=== PATIENT | female | born 1990 | race Two or more races ===

== ENCOUNTER 2019-06-06 19:50 | Outpatient (RCR) | payer OTHER, SELFPAY ==
[2019-06-06] MEDS: RHO(D) IMMUNE GLOBULIN 300 MCG SYRINGE IM (20:17)
== END 2019-09-01 23:59 | disposition home or self-care (01) ==
LOC: ANHLAB 19:50
PROVIDERS: PCP Family Medicine; Visit Provider Student in an Organized Health Care Education/Training Program
DX: Z29.13 Encounter for prophylactic Rho(D) immune globulin (principal); O36.0990 Maternal care for other rhesus isoimmunization, unspecified trimester, not applicable or unspecified; Z3A.00 Weeks of gestation of pregnancy not specified
CPT/HCPCS: 36415; 85461; 90384; 96372; J2790

== ENCOUNTER 2019-07-23 10:25 | Outpatient (RCR) | payer OTHER, SELFPAY ==
[2019-07-21 16:27] VITALS: BP 94/61; PULSE 85
[2019-07-23 10:55] VITALS: BP 104/64; PULSE 91
== END 2019-08-17 13:18 | disposition home or self-care (01) ==
LOC: ANHOBOP 10:25
PROVIDERS: PCP Family Medicine; Visit Provider Student in an Organized Health Care Education/Training Program
DX: O36.5930 Maternal care for other known or suspected poor fetal growth, third trimester, not applicable or unspecified (principal); Z3A.35 35 weeks gestation of pregnancy
CPT/HCPCS: 59025; J3010

== ENCOUNTER 2019-08-16 10:30 | Outpatient (CLI) | payer OTHER, SELFPAY ==
[2019-08-16 11:01] LABS: Hematocrit 29.4 % (37.0-47.0); Mean Corpuscular Hemoglobin 30.7 pg (26-34); Mean Corpuscular Volume 90.2 fl (80-100); Mean Platelet Volume 10.5 fl (7.4-10.4); Platelet Count Result 145 k/mm3 (150-375); Red Blood Count 3.26 M/mm3 (4.2-5.4); Red Cell Distribution Width 13.6 % (11.5-14.5); White Blood Count 10.8 K/mm3 (4.5-10.0)
[2019-08-17 07:25] LABS: Rapid Plasma Reagin Non-Reactive (NonReactive)
== END 2019-08-16 10:31 | disposition home or self-care (01) ==
LOC: ANHLAB 10:32
PROVIDERS: PCP Family Medicine; Visit Provider Student in an Organized Health Care Education/Training Program
DX: Z34.93 Encounter for supervision of normal pregnancy, unspecified, third trimester (principal); Z3A.00 Weeks of gestation of pregnancy not specified
CPT/HCPCS: 36415; 85027; 86592; 86850; 86880; 86900; 86901; 86902

== ENCOUNTER 2019-08-17 05:30 | Inpatient (IN) | payer OTHER, SELFPAY ==
[2019-08-17] VITALS (54 sets, daily range): BP systolic 80–128; BP diastolic 25–88; PULSE 38–122; RESP 16–18; TEMP 36.1–37; O2SAT 98–100; BMI 27.3
--- NOTE | 2019-08-17 06:51 | PM.IMHP ---
H&P: HPI History of Present Illness Chief complaint: Narrative: Chapo Spence is a 29 year old at 39w1d who presents for repeat section. is complicated by history of prior x2. She endorses good FM. She denies regular contractions, vaginal bleeding, or leakage of fluid. Review of Systems Cardiovascular: Cardiovascular: Denies chest pain, Denies leg edema, Denies palpitations, Denies dyspnea and Denies dyspnea on exertion Respiratory: Respiratory: Denies cough, Denies dyspnea and Denies dyspnea on exertion Gastrointestinal: Gastrointestinal: Denies abdominal pain, Denies constipation, Denies diarrhea, Denies nausea and Denies vomiting Genitourinary: Genitourinary: Denies hematuria, Denies urinary frequency, Denies dysuria, Denies pelvic pain, Denies urinary incontinence and Denies vaginal discharge Neurologic: Reports system reviewed and no additional complaints, except as documented Psychiatric: Psychiatric: Reports no additional psychiatric complaints Endocrine: Endocrine: Denies palpitations [facility] Family History Family History (Updated 07/29/19 @ 15:39 by Azra Lamb RN) Mother Diabetes mellitus Hypertension Father Multiple sclerosis Social History Social History Substance use: never Gender identity (if verbalized by the patient): Female Spiritual care concerns: No Meds Home Medications and Allergies Home Medications Medication Instructions Recorded Confirmed Type PNV cmb#95-ferrous fumarate-FA 1 tablet PO DAILY 07/29/19 07/29/19 History [] ergocalciferol (vitamin D2) 1,250 mcg PO WEEKLY 07/29/19 07/29/19 History [Vitamin D2] Allergies Allergy/AdvReac Type Severity Reaction Status Date / Time aspirin AdvReac Unknown Other Verified 07/29/19 17:03 ibuprofen AdvReac Unknown Unknown Verified 07/29/19 17:03 Exam Const: General: no acute distress Eyes: EOM: EOMs intact bilaterally Neck: Neck: supple Thyroid: thyroid normal Chest: Breast/axilla inspection: normal inspection of the breasts Breast/axilla palpation: normal palpation of the breasts, normal palpation of the axillae and no axillary lymphadenopathy Resp: Effort & Inspection: normal respiratory effort Auscultation: clear to auscultation bilaterally Cardio: Rate: regular rate Rhythm: regular rhythm GI: Inspection: non-distended GI Palp: Yes Soft to palpation, No Tenderness to palpation present (GI) and No Guarding due to palpation present (GI) Auscultation: normal bowel sounds Other: Gravid, fundal height equal to dates, non-tender : General: No bladder normal to palpation External Female Exam: normal external appearance Speculum Exam - Vagina: normal vaginal discharge and No vaginal bleeding Speculum Exam - Cervix: nontender Bimanual exam- vagina & uterus: No bladder normal to palpation and No Cervical tenderness present OB/external & speculum: No vaginal bleeding Skin: General skin exam: normal color and no rashes or lesions noted Neuro: Cognition (Neuro): normal cognition Speech: normal speech Extrem: General: normal to inspection and no edema Psych: Mental Status: mental status grossly normal Affect: normal affect Assessment and Plan Assessment and plan (1) Supervision of high risk , unspecified, third trimester: Code(s): O09.93 - Supervision of high risk , unspecified, third trimester Status: Acute Assessment and Plan: 29 yo at 39w1d admit to L&D routine Pre-op orders Rh neg, will need rhogam after delivery GBS neg FHT cat 1 plan for repeat (2) History of section complicating : Code(s): O34.219 - Maternal care for unspecified type scar from previous delivery Status: Acute Assessment and Plan: prior x2 plan for repeat at 39w GA
--- NOTE | 2019-08-17 07:09 | WPDANESEPPF ---
Anes - Initial Pre Proc Eval Procedure: Operation Date: 08/17/19 07:30 Proposed Procedures p Repeat Section - Pratik Jaramillo MD Date/Time: 08/17/19 07:09 Surgeon: Pratik Jaramillo MD Pre Op Diagnosis: Patient Data Age: 29 Gender: F Height: Weight: Last Vital Signs Pulse 80 08/17/19 07:01 BP 98/64 L 08/17/19 07:01 Allergies Allergy/AdvReac Type Severity Reaction Status Date / Time aspirin AdvReac Unknown Other Verified 07/29/19 17:03 ibuprofen AdvReac Unknown Unknown Verified 07/29/19 17:03 Home Medications Medication Instructions Recorded Confirmed Type PNV cmb#95-ferrous fumarate-FA 1 tablet PO DAILY 07/29/19 07/29/19 History [] ergocalciferol (vitamin D2) 1,250 mcg PO WEEKLY 07/29/19 07/29/19 History [Vitamin D2] Patient hx anesthesia problems: none Family hx anesthesia problems: none PMFSH Past Medical History Medical History (Updated 08/17/19 @ 07:13 by Anjel Castillo MD) Ulcerative colitis Family History Family History Mother Diabetes mellitus Hypertension Father Multiple sclerosis Social History Social History Substance use: never Gender identity (if verbalized by the patient): Female Spiritual care concerns: No Anes - Eval Final PreProcedure Day of Procedure 08/17/19 07:09 Patient weight: overweight Heart: regular rate and rhythm Lungs: clear to auscultation Airway: Mallampati scale class II Neurological: alert and oriented Last oral intake: >/= 8 hours ASA classification: II Emergent: no Anesthetic plan: proceed Anesthesia type and monitoring: regional spinal and standard monitoring Informed Consent: The patient's anesthetic plan and its attendant risks and benefits were discussed with the patient/family/POA. Questions were solicited and answers provided to the satisfaction of the patient/family/POA.
[2019-08-17] MEDS: LACTATED RINGERS 1,000 ML 999 ML IV CONT (07:29)
[2019-08-17] MEDS: ceFAZolin 2 GM/D5W 50 ML 2 GM/50 ML BAG IVPB (07:32)
[2019-08-17] MEDS: LACTATED RINGERS 1,000 ML 100 ML IV CONT (07:36)
--- NOTE | 2019-08-17 08:45 | PM.PROC ---
Procedure Note - Detailed Date of procedure: 08/17/19 Pre-op diagnosis: prior c/s x2 Post-op diagnosis: same Procedure performed: repeat low transverse section Description of procedure: The patient was taken to the operating room where epidural anesthesia was found to be adequate. She was then prepped and draped in the usual sterile fashion in the dorsal supine position with a leftward tilt. A Pfannenstiel skin incision was then made with the scalpel and carried through to the underlying layer of fascia. The fascia was then incised in the midline and the incision extended laterally with the Foley scissors. The superior aspect of the fascia was then grasped with the Stephen clamps, elevated, and the underlying rectus muscles dissected off bluntly and sharply. Attention was then turned to the inferior aspect of this incision which, in a similar fashion, was grasped, tented up with the Stephen clamps, and the rectus muscles dissected off both bluntly and sharply. The rectus muscles were then in the midline, and the peritoneum identified, tented up, and entered sharply with the Metzenbaum scissors. The peritoneal incision was then extended superiorly and inferiorly with good visualization of the bladder. The bladder blade was then inserted and the vesicouterine peritoneum identified, grasped with the pick-ups and entered sharply with the Metzenbaum scissors. This incision was then extended laterally and the bladder flap created digitally. The bladder blade was then reinserted and the lower uterine segment incised in a low, transverse fashion with the scalpel. The uterine incision was then extended bluntly . The bladder blade was removed and the infant?s head delivered atraumatically. The remainder of the infant was delivered atraumatically. The cord was clamped and cut. The infant was handed off to the waiting pediatricians (staff). Cord gasses were sent. The placenta was then removed manually, the uterus exteriorized, and cleared of all clots and debris. The uterine incision was repaired with 0 monocryl in a running fashion. A second layer of suture with 0 monocryl was used as an imbricating layer. The uterus was returned to the abdomen. The uterus was then reinspected to ensure hemostasis as were all subfascial tissues. The peritoneum was re-approximated with 3-0 vicryl in a running fashion. The fascia was reapproximated with 0 vicryl in a running fashion. The subcutaneous tissue was copiously irrigated with saline. The subcutaneous tissue was reapproximated using 3-0 Vicryl in a running fashion. The skin was closed with 4-0 vicryl. The patient tolerated the procedure well. Sponge, lap and needle counts were correct times three. The patient was taken to the recovery room in stable condition. Anesthesia: spinal Surgeon: Pratik Jaramillo MD Estimated blood loss (mL): 415 IV fluids (mL): 1,000 Urine output (mL): 150 Drains: No Packing: No Pathology: none sent Complications: No immediate complications Condition: stable Disposition: floor ( ) Findings: normal appearing uterus, bilateral fallopian tubes and ovaries
[2019-08-17] MEDS: OXYTOCIN 30 UNITS/NS 500 ML 30 UNITS/500 ML BAG 125 UNITS IV CONT (10:03)
--- NOTE | 2019-08-17 11:15 | PC.NURSE ---
transferred pt to ob 2nd floor, pt started to complain incision pain. called Sanrda Del Real CRNA and reported pain. order received for fentanyl 50mcg IV one time dose. will contact Dr. Jaramillo for farther pain control.
--- NOTE | 2019-08-17 11:54 | PC.NURSE ---
Patient transferred to post room #290 per stretcher. Support person present. Oriented to unit, room, information board, rooming in, admission packet and security measures. Patient verbalizes understanding.
--- NOTE | 2019-08-17 12:14 | PC.NURSE ---
Dr. Pan phoned and spoke with Shilpa Hernandez RN. Order received to pull epidural and give regular diet. Pt. going to have tubal ligation in 6weeks at another facility.
--- NOTE | 2019-08-17 12:48 | PC.NURSE ---
Attempted to financial health counselor with pt regarding her choice to breast feed. Pt is currently sleeping. Pumping equipment left in room and will revisit at a better time.
[2019-08-17] MEDS: MORPHINE SULFATE 2 MG/ML INJ IV PUSH ×2 (13:45→18:45)
[2019-08-17] MEDS: MORPHINE SULFATE 2 MG/ML INJ (13:54)
[2019-08-17] MEDS: KCL 20 MEQ/D5/0.45% SOD CHL 1,000 ML 125 ML IV CONT (14:17)
--- NOTE | 2019-08-17 15:56 | PC.NURSE ---
Consulted with patient, reviewed feeding cues, frequencies, duration of feedings, feeding elimination flow sheet, and signs of adequate intake. Demonstrated stimulation techniques to wake for feeding. Assisted with infant to breast. Reviewed positioning/alignment, holding breast and asymmetrical latch on. was able to latch correctly. Infant nursed eagerly, with steady draws and occasional swallowing noted with stimulation. Reviewed signs of a correct latch, effective nursing and suck swallow ratio. Infant was able to maintain latch without discomfort to mother. Nipple care reviewed. Instructed mother to call out for RN assistance if she is unable to latch infant for feeding or she has discomfort with nursing. Instructed feeding should be initiated three hours from start of last feeding or if feeding cues are noted before. Mother voiced understanding of information shared. Breast pump provided due to infant being SGA. Instructions given on breast pump care and usage, pumping schedule, nipple care, and collection and storage of breast milk. Encouraged [id number], breast massage and manual expression to stimulate supply. Pumping log provided and reviewed. Assessed patient for correct flange size, placement and draw. Patient verbalizes and demonstrates understanding of instructions.
[2019-08-17] MEDS: SIMETHICONE 80 MG TAB.CHEW PO (20:39)
[2019-08-17] MEDS: oxyCODONE/ACETAMINOPHEN 5-325 MG TABLET 1 TABLET PO (20:40)
[2019-08-18] MEDS: oxyCODONE/ACETAMINOPHEN 5-325 MG TABLET 1 TABLET PO (01:54)
[2019-08-18 05:15] VITALS: PULSE 74; RESP 18; O2SAT 100
[2019-08-18 05:35] LABS: Basophils Absolute Auto 0.1 K/mm3 (0.0-0.1); Basophils Percent Auto 0.5 % (0.2-1.2); Eosinophils Absolute Auto 0.2 K/mm3 (0-0.3); Hematocrit 26.2 % (37.0-47.0); Hemoglobin 8.8 g/dL (12.0-15.0); Immature Granulocyte Absolute 0.06 K/mm3 (0.00-0.031); Immature Granulocyte Percent A 0.5 % (0-0.5); Lymphocytes Absolute Auto 1.67 K/mm3 (0.9-3.2); Lymphocytes Percent Auto 15.1 % (18.3-44.2); Mean Corpuscular HGB Conc 33.6 g/dl (32-36); Mean Corpuscular Hemoglobin 30.8 pg (26-34); Mean Corpuscular Volume 91.6 fl (80-100); Monocytes Absolute Auto 0.6 K/mm3 (0.1-0.6); Neutrophils Absolute Auto 8.5 K/mm3 (1.3-6.7); Neutrophils Percent Auto 76.9 % (45.5-73.1); Platelet Count Result 163 k/mm3 (150-375); Red Blood Count 2.86 M/mm3 (4.2-5.4); Red Cell Distribution Width 13.6 % (11.5-14.5)
[2019-08-18] MEDS: DOCUSATE SODIUM 100 MG CAPSULE PO ×3 (08:34→20:26)
[2019-08-18] MEDS: MULTIVIT/MIN/PREN/FOL AC/IRON TABLET 1 TAB PO (08:35)
[2019-08-18] MEDS: oxyCODONE/ACETAMINOPHEN 5-325 MG TABLET 2 TABLET PO ×4 (08:35→20:25)
[2019-08-18] MEDS: POLYSACCHARIDE IRON COMPLEX 150 MG CAPSULE PO ×2 (08:35→16:33)
--- NOTE | 2019-08-18 09:02 | WPDANLDPN2 ---
Anes-Prog Note L&D Date/Time: 08/18/19 09:02 Comfortable throughout: section Neuraxial method: spinal Epidural/Spinal procedure site: clean & non-tender Neuro status: Neuro function grossly intact. Cardiovascular status: normal Respiratory status: normal Airway patency: baseline Mental status: baseline Post-Op hydration status: normal Vital Signs: Last Vital Signs Temp 98.3 F 08/17/19 23:15 Pulse 74 08/18/19 05:15 Resp 18 08/18/19 05:15 BP 102/56 L 08/17/19 23:15 Pulse Ox 100 08/18/19 05:15 I/O: Intake & Output 08/17/19 08/18/19 08/18/19 23:59 07:59 15:59 Intake Total 1600 1000 Output Total 2150 650 Balance -550 350 Post-procedural complaints: none Patient feedback: Patient satisfied with anesthetic care.
--- NOTE | 2019-08-18 09:02 | WPDANLDNPN2 ---
Anes-Prog Note L&D-Neuraxial Date/Time: 08/18/19 09:02 Neuraxial medications: intrathecal PF morphine Opiod-related complaints: none Patient feedback: Patient satisfied with post-operative pain management.
[2019-08-18 09:20] VITALS: BP 102/63; PULSE 79; RESP 18; TEMP 36.7; O2SAT 100
--- NOTE | 2019-08-18 09:48 | PM.OBPNVD ---
OB - PN: Subj Subjective Date/time seen: 08/18/19 09:48 Interval history: patient doing well this morning. No complaints. Pt is ambulating. Her catheter is removed but she has not yet voided. She is tolerating PO without N/V. Her pain is well controlled. She denies any F/C/N/V. Patient comments: no complaints, pain well controlled, tolerating diet and flatus present OB - PN: Obj Data Labs CBC & Chem 7: 08/18/19 05:23 Labs: Laboratory Results - last 24 hr 08/18/19 08/18/19 05:23 05:23 WBC 11.0 H RBC 2.86 L Hgb 8.8 L Hct 26.2 L MCV 91.6 MCH 30.8 MCHC 33.6 RDW 13.6 Plt Count 163 MPV 11.0 H Immature Gran % (Auto) 0.5 Neut % (Auto) 76.9 H Lymph % (Auto) 15.1 L Rolette % (Auto) 5.0 Eos % (Auto) 2.0 Baso % (Auto) 0.5 Lymph # (Auto) 1.67 Rolette # (Auto) 0.6 Eos # (Auto) 0.2 Baso # (Auto) 0.1 Abs Immat Gran (auto) 0.06 H Absolute Neuts (auto) 8.5 H Absolute Nucleated RBC 0.0 Nucleated RBC % 0.0 % Immature Plt Fraction 6.0 Blood Type A Negative Antibody Screen TNP Screen Negative Baby's Blood Type A pos Baby's KENISHA Negative Doses of RhIg Required 1 OB - PN A/P Plan day: 1 Plan: routine care Comments: patient doing well H/H stable afebrile, VSS incision C/D/I stratton removed continue routine post op care Time Spent With Patient Time: Total time spent is greater than 50% in coordination of care (as documented) at patient's floor/unit and/or counseling patient: Time with patient: less than 15 minutes Review of Systems Constitutional: Constitutional: Reports no additional constitutional complaints Cardiovascular: Cardiovascular: Reports no additional cardiovascular complaints Respiratory: Respiratory: Reports no additional respiratory complaints Gastrointestinal: Gastrointestinal: Reports no additional gastrointestinal complaints Genitourinary: Genitourinary: Reports no additional female genitourinary complaints Exam Const: General: comfortable and no acute distress Resp: Effort & Inspection: normal respiratory effort Auscultation: clear to auscultation bilaterally Cardio: Rate: regular rate GI: GI Palp: Yes Soft to palpation, Yes Tenderness to palpation present (GI) (around incision ) and No Guarding due to palpation present (GI) Auscultation: normal bowel sounds Other: incision C/D/I, covered with Dermabond Psych: Appearance: grossly normal Mental Status: mental status grossly normal Affect: normal affect
--- NOTE | 2019-08-18 13:30 | PC.NURSE ---
Consult with pt., mother reports her plan is to breast and bottle feed as she did with other children. Mother puts to breast at times and will bottle feed at times. Mother states is able to latch without issues. Requested mother call out next feeding for assist.
[2019-08-18] MEDS: RHO(D) IMMUNE GLOBULIN 300 MCG SYRINGE IM (16:55)
[2019-08-18] MEDS: SIMETHICONE 80 MG TAB.CHEW PO (20:24)
[2019-08-18 22:36] VITALS: BP 105/64; PULSE 75; RESP 16; TEMP 36.7; O2SAT 100
[2019-08-19] MEDS: SIMETHICONE 80 MG TAB.CHEW PO ×4 (00:40→13:11)
[2019-08-19] MEDS: oxyCODONE/ACETAMINOPHEN 5-325 MG TABLET 2 TABLET PO ×4 (00:40→13:11)
[2019-08-19] MEDS: TETANUS,DIPHTHERIA,AC PERTUSSIS ADULT (0.5 ML) BOOSTRIX IM (00:44)
--- NOTE | 2019-08-19 07:11 | PM.OBDSVD ---
DS: Admitting Diagnosis Admitting Diagnosis Admitting Diagnosis: Supervision of high risk , unspecified, third trimester OB - DS: Summary OB Procedures : None OB Procedures Intrapartum: OB Procedures: : None Peripartum Data Delivery Method: Section Procedures: Procedures Operation Date: 08/17/19 07:30 Actual Procedures Side Surgeon p Repeat Section Not Applicable Pratik Jaramillo MD complications: none Status at Discharge Functional status at discharge: independent ambulation Overall status at discharge: patient is progressing back to baseline Time Spent with Patient Time attestation: Total time spent providing and/or coordinating discharge services: Time spent: Less than 30 minutes Exam Const: General: comfortable and no acute distress Resp: Effort & Inspection: normal respiratory effort Auscultation: clear to auscultation bilaterally Cardio: Rate: regular rate GI: Inspection: non-distended GI Palp: Yes Soft to palpation, No Firmness to palpation present (GI), Yes Tenderness to palpation present (GI) (mild tenderness over incision ) and No Guarding due to palpation present (GI) Auscultation: normal bowel sounds Psych: Appearance: grossly normal Mental Status: mental status grossly normal DS: Data Data Completed and Pending Labs on day of discharge: Labs from last 24 hours 08/18/19 05:23 Blood Type A Negative Antibody Screen TNP Screen Negative Baby's Blood Type A pos Baby's KENISHA Negative Doses of RhIg Required 1 Discharge Plan Discharge Discharging Clinician: Pratik Jaramillo Patient Disposition: Home, Self-Care Activity: no straining, as tolerated and pelvic rest Diet: regular Discharge Instructions: call or return for temperature >100.4, bleeding >2 pads/hr for 2 hrs, pain not controlled with medications, signs/symptoms of mastitis Patient Instructions: How to Stop Smoking (DC), Antibiotic Form, Vaginal Delivery (DC) Stand Alone Forms: General Discharge Information Follow-up/Referrals: Pratik Jaramillo MD [Physician] - Discharge Medications: New oxycodone-acetaminophen 5-325 mg Tablet 1 tablet PO Q6H PRN (Reason: Pain Rated 4-6) Qty: 28 RF: 0 docusate sodium 100 mg Capsule 100 mg PO BID Qty: 30 RF: 0 acetaminophen [Mapap (acetaminophen)] 325 mg Tablet 650 mg PO Q6H PRN (Reason: Mild Pain (1-3)) Qty: 30 RF: 0 Continued PNV cmb#95-ferrous fumarate-FA [] 28 mg iron- 800 mcg Tablet 1 tablet PO DAILY RF: 0 Discontinued ergocalciferol (vitamin D2) [Vitamin D2] 1,250 mcg (50,000 unit) Capsule 1,250 mcg PO WEEKLY RF: 0 Date of admission: 08/17/19 05:30 Primary Care Provider: Gómez,Irene Syed Admitting Provider: Pratik Jaramillo Attending physician on admission: Pratik Jaramillo
[2019-08-19 09:00] VITALS: BP 105/52; PULSE 77; RESP 18; TEMP 36; O2SAT 97
[2019-08-19] MEDS: DOCUSATE SODIUM 100 MG CAPSULE PO (09:24)
[2019-08-19] MEDS: POLYSACCHARIDE IRON COMPLEX 150 MG CAPSULE PO ×2 (09:24→09:26)
[2019-08-19] MEDS: MULTIVIT/MIN/PREN/FOL AC/IRON TABLET 1 TAB PO (09:24)
--- NOTE | 2019-08-19 12:49 | PC.NURSE ---
Patient was given the opportunity to view the discharge video Mother & Baby Care, The First Two Weeks and to ask questions. Patient declined viewing the video and has been given the mother/baby guide for home reference.
[2019-08-20 09:24] VITALS: BP 102/73; PULSE 83; RESP 18; TEMP 36.9
== END 2019-08-19 13:35 | disposition home or self-care (01) | DRG 540 ==
LOC: ANHLDR 05:36 → ANHOB2 11:11
PROVIDERS: Admitting Provider Student in an Organized Health Care Education/Training Program; PCP Family Medicine; Visit Provider Student in an Organized Health Care Education/Training Program
PROC: 10D00Z1 Extraction of Products of Conception, Low, Open Approach (ICD-10-PCS; CPT 59514; principal; 2019-08-17 07:30)
DX: O34.211 Maternal care for low transverse scar from previous cesarean delivery (principal); Z3A.39 39 weeks gestation of pregnancy; Z37.0 Single live birth
CPT/HCPCS: 36415; 85025; 85055; 85461; 90384; 90715; A9270; J0131; J0690; J1170; J1200; J2270; J2274; J2370; J2405; J2590; J2790; J3010; J3480; J7120